=== PATIENT | female | born 2000 | race Caucasian/White ===

== ENCOUNTER 2021-11-13 05:23 | Emergency (ER) | payer MEDICAID ==
[~2021-11-13] VITALS: Ht 144.8 cm; Wt 37.6 kg
[2021-11-13 05:27] VITALS: BP 115/65
[2021-11-13 05:59] LABS: APPEARANCE,URINE CLOUDY (CLEAR); BILIRUBIN,URINE NEGATIVE (NEGATIVE); BLOOD, URINE NEGATIVE (NEGATIVE); COLOR,URINE YELLOW (YELLOW); LEUKOCYTE ESTERASE ,URINE NEGATIVE (NEGATIVE); NITRITE, URINE NEGATIVE (NEGATIVE); UGLUCOSE NEGATIVE (NEGATIVE)
[2021-11-13] MEDS ORDERED: ACET-10509 PO (06:15)
[2021-11-13] MEDS ORDERED: DOXY-690 PO (06:15)
[2021-11-13] MEDS ORDERED: DOXYCYCLINE 100 MG CAP PO STA (06:16)
[2021-11-13] MEDS ORDERED: cefTRIAXone 500 MG in LIDOCAINE MPF 1% 1 ML IM ONE (06:20)
[2021-11-13] MEDS ORDERED: cefTRIAXone 500 MG VIAL ONE (06:31)
[2021-11-13] MEDS ORDERED: LIDOCAINE MPF 1% 5 ML ONE (06:32)
[2021-11-13 06:54] VITALS: BP 137/92
== END 2021-11-13 06:54 | disposition home or self-care (01) ==
LOC: MED 05:23
DX: R30.0 Dysuria (principal); Z20.2 Contact with and (suspected) exposure to infections with a predominantly sexual mode of transmission; Z79.899 Other long term (current) drug therapy
CPT/HCPCS: 36415; 81003; 81025; 96372; 99283; J0696; J2001